=== PATIENT | male | born 1970 | race Caucasian/White ===

== ENCOUNTER 2022-05-26 10:02 | Outpatient (CLI) | payer OTHER, SELFPAY ==
--- NOTE | 2022-05-26 09:45 | DI.RAD_ITS ---
Exam(s) XR KNEE RT 4V AP,LAT,AGGIE,PAT EXAM: XR KNEE RT 4V AP,LAT,AGGIE,PAT CLINICAL HISTORY: right knee pain. TECHNIQUE: 2D digital imaging was performed. COMPARISON: No exams were available for comparison FINDINGS: Five views: There is no evidence of fracture but there does appear to be a small joint effusion which may signify an internal derangement. There are no degenerative changes in the 3 compartments of the right knee. A small round calcifications noted off the outer aspect of the lateral femoral condyle. This is in the region of the fibular collateral ligament but does not have the appearance of an avulsed fragmen t. There is no joint space narrowing nor osteochondral defects evident in the patellofemoral compart ment. IMPRESSION: No significant osseous findings in the right knee. However, there does appear to be a joint effusion which may signify an internal derangement. DATA REPOSITORY: RADIATION DOSE DELIVERED:
== END 2022-05-26 10:03 | disposition home or self-care (01) ==
LOC: DIORS 10:03
PROVIDERS: PCP Family Medicine; Referring Provider Family Medicine; Visit Provider Student in an Organized Health Care Education/Training Program
DX: M25.561 Pain in right knee (principal); M25.461 Effusion, right knee
CPT/HCPCS: 73564

== ENCOUNTER 2022-10-17 08:03 | Day surgery (SDC) | payer OTHER, SELFPAY ==
[2022-10-17 08:46] VITALS: BP 154/73; PULSE 80; RESP 16; TEMP 36.6; O2SAT 100
[2022-10-17] MEDS: Lactated Ringers 1,000 ML 80 ML IV (09:00)
--- NOTE | 2022-10-17 09:32 | ANES.PREOP_ITS ---
General Info Date of Service Date Performed: 10/17/22 Height: 5 ft 8 in Weight: 82.1 kg Body Mass Index (BMI): 27.5 Surgical Procedure: Operation Date: 10/17/22 09:05 Proposed Procedure Side Surgeon rosangela Ray, Meds Allergies and Home Medications Allergies Allergy/AdvReac Type Severity Reaction Status Date / Time peanut Allergy Severe Anaphylaxis Unverified 10/17/22 08:41 Home Medication Medication Instructions Recorded albuterol sulfate 90 mcg/actuation 2 puff inhalation Q6H PRN 09/25/22 aerosol inhaler (Ventolin HFA) betamethasone dipropionate 0.05 % 1 applic topical DAILY PRN 09/25/22 topical cream epinephrine 0.3 mg/0.3 mL 0.3 mg IM Q4H PRN 09/25/22 injection, auto-injector fluoride (sodium) 1.1 % dental 1 applic dental DAILY 09/25/22 paste fluticasone propionate 50 1 spray intranasal DAILY 09/25/22 mcg/actuation nasal spray,suspension (Flonase Allergy Relief) hydrochlorothiazide 25 mg tablet 25 mg PO QAM 09/25/22 levocetirizine 5 mg tablet 5 mg PO DAILY 09/25/22 lisinopril 40 mg tablet 40 mg PO DAILY 09/25/22 mupirocin 2 % topical ointment 1 applic topical BID 09/25/22 rosuvastatin 5 mg tablet 5 mg PO DAILY 09/25/22 bisacodyl 5 mg tablet,delayed 5 mg PO ONCE Colonoscopy Bowel 10/13/22 release (Dulcolax (bisacodyl)) Prep #4 tabs polyethylene glycol 3350 17 238 g PO ONCE Colonoscopy Bowel 10/13/22 gram/dose oral powder Prep #238 grams Current Visit Medications: Current Medications Generic Name Dose Route Start Last Admin Trade Name Freq PRN Reason Stop Dose Admin Hyoscyamine Sulfate 0.125 mg 10/17/22 02:45 Hyoscyamine 0.125 Mg Sl/Oral/Chew SL DIRECTED PRN Ringer's Solution 1,000 mls @ 80 mls/hr 10/17/22 06:00 10/17/22 09:00 IV 11/15/22 23:59 80 mls/hr INFUSION STEPHANIE Administration IV Miscellaneous Supplies 1 each 10/17/22 06:00 Iv Access IV 11/15/22 23:59 DIRECTED STEPHANIE Ondansetron HCl 4 mg 10/17/22 02:45 Ondansetron 4 Mg/2 Ml Vial IVP Q4H PRN PRN Nausea / Vomiting Sodium Chloride 0 ml 10/17/22 06:00 Normal Saline Flush 10 Ml Syr IV 11/15/22 23:59 PRN PRN Sodium Chloride 0 ml 10/17/22 06:00 Normal Saline 10 Ml Vial IJ 11/15/22 23:59 DIRECTED PRN Sterile Water 0 ml 10/17/22 06:00 Water,Injection,Sterile 10 Ml Vial IJ 11/15/22 23:59 DIRECTED PRN PFSH Active Problems Active Problems: Problem Status Onset Code Internal derangement of right knee M23.91 Plica syndrome, 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 states unknown Surgical History Surgical History (Updated 10/17/22 @ 08:40 by Natalie Love) Hx of hernia repair Tobacco Smoking/Tobacco Use Status: Never Alcohol Alcohol Intake: current Alcohol intake frequency: a few times a week Alcohol type: wine Substance Use Substance use: Never Substance use type: does not use Details: alcohol: t-2, couple glasses of wine Vital Signs and Lab Results Vital Signs Most Recent Vital Signs in EMR: Most Recent Vital Signs Temp Pulse Resp BP Pulse Ox 36.6 C 80 16 154/73 H 100 10/17/22 08:46 10/17/22 08:46 10/17/22 08:46 10/17/22 08:46 10/17/22 08:46 Lab Results Blood Type / Crossmatch: 2 No Data to Display Complete Blood Count: No Data to Display Complete Metabolic Panel: No Data to Display Liver Function Panel: No Data to Display Coagulation Panel: No Data to Display Cardiac Panel: No Data to Display Arterial Blood Gas: No Data to Display Venous Blood Gas: No Data to Display Pancreas Panel: No Data to Display Thyroid Panel: No Data to Display Infectious Disease: No Data to Display Blood Cultures: No Data to Display Toxicology Panel: No Data to Display Anesthesia Assessment and Plan Anesthesia History Personal History: No History of Anesthesia Complications Family History: No Family History of Anesthesia Complications Exercise Tolerance Exercise Tolerance: Metabolic Equivalents>4 Pertinent Negatives Pertinent Negatives: No Symptoms of GERD Cardiac & Pulmonary Exam Cardiac Exam: Normal S1/S2 Heart Sounds Pulmonary Exam: Clear Bilateral Breath Sounds Implantable Cardiac Device Does patient have a Pacemaker or an ICD?: No Airway Exam Known Difficult Airway: No Mallampati Class: 3 Mouth Opening: Normal (> 3cm) Thyromental Distance: Greater than 3 cm Facial Hair: Full Calixto Neck Range of Motion: Full ROM Neck Circumference: Normal Teeth Condition: Normal Dentition ASA Classification ASA Score: ASA 2 Emergency Case?: No NPO Status NPO Status: NPO Clears >2 hours, Solids >8 hours Anesthesia Plan Resuscitation Status: Full Code Anesthesia Technique: General Anesthesia Airway Planned: Natural Airway Monitors Used: Standard Monitors
[2022-10-17 10:01] VITALS: BMI 27.5
--- NOTE | 2022-10-17 10:27 | BOWEL_PTH ---
PATIENT: Silverio Jean LOC: [facility] U#:[id number] AGE/SX: 52/M ROOM: RE10/17/[address]: Siomara Ray : 1970 BED: DIS: 10/17/2022 SPEC #: [id number] RECD: 10/17/22 12:39 STATUS: EDWARD REQ #: [id number] RANDI: 10/17/22 10:[address]: Siomara Ray DEPT: Surgical Specimen RECD BY: Chari Philippe ENTERED: 10/17/22 12:40 SP TYPE: Bowel OTHR DR: Silverio De Leon Tissues: 1 - BIOPSY BOWEL 2 - BIOPSY BOWEL 3 - BIOPSY BOWEL Procedures: GROSS AND MICRO LEVEL 4 Comments: [id number]
[2022-10-17 11:00] VITALS: BP 118/70; PULSE 66; RESP 16; TEMP 36.5; O2SAT 97
--- NOTE | 2022-10-17 11:03 | W.COLOREPORT ---
Date of service: 10/17/22 Time of Service: 11:03 Colonoscopy Report Date of procedure: 10/17/22 Pre-op diagnosis general: Colorectal cancer screening Post-op diagnosis procedure note: other (Multiple polyps) Surgeon: Siomara Ray Anesthesia Type: General:No Airway Estimated blood loss (mL): 1 Pathology: other Disposition: same day Prep: Miralax/Dulcolax Procedure Description: After informed consent was obtained the patient was taken to the procedure room and placed in a left decubitous position. Monitors were applied and a time out was done. The patients name, date of , procedure, allergies to medications and metal in their body was reviewed. The patient was then sedated. Once sedated and comfortable a rectal exam was done. External exam was normal. Internal exam revealed a normal sphincter tone and no palpable masses. The scope was then introduced and retrofelexed. No internal hemorrhoids were identified. The scope was then advanced to the cecum w/out difficulty. The TI and appendiceal orifice were identified. The prep was BBPS 3 in all segments for a total of 9. The scope was then slowly retracted over 22 minutes back into the rectum. There are no diverticula visualized today. The mucosa is pink and healthy. He had multiple polyps that we removed today. All polyps are removed with a cold biting forcep. All specimen is retrieved and no bleeding is noted. They are all flat 5 mm polyps. They are removed from: x1 at 20 cm. X1 at 70 cm. And x1 in the rectum. All specimens are retrieved and no bleeding is noted the scope was removed and the patient was woken up and taken back to Same day surgery in stable condition. The patient tolerated the procedure well and there were no immediate complications. Follow up: The patient should follow up in 5 years, path pd, unless they develop changes in bowel habits or other new gastrointestinal complaints.
--- NOTE | 2022-10-17 11:07 | PDOC.DSDIS_ITS ---
Date of service: 10/17/22 Time of Service: 11:07 Discharge Plan Disposition Patient Disposition: Home Condition: Good Discharge Details Reason For Visit: Colon scope Attending Provider: Siomara Ray Primary Care Provider: Silverio De Leon Home Meds and New Rx's Prescriptions: Continued lisinopril 40 mg tablet 40 mg PO DAILY mupirocin 2 % ointment 1 applic topical BID rosuvastatin 5 mg tablet 5 mg PO DAILY betamethasone dipropionate 0.05 % cream 1 applic topical DAILY PRN fluoride (sodium) 1.1 % paste 1 applic dental DAILY levocetirizine 5 mg tablet 5 mg PO DAILY fluticasone propionate [Flonase Allergy Relief] 50 mcg/actuation spray,suspension 1 spray intranasal DAILY Rx Instructions: administer into each nostril epinephrine 0.3 mg/0.3 mL auto-injector 0.3 mg IM Q4H PRN albuterol sulfate [Ventolin HFA] 90 mcg/actuation HFA aerosol inhaler 2 puff inhalation Q6H PRN hydrochlorothiazide 25 mg tablet 25 mg PO QAM Discontinued bisacodyl [Dulcolax (bisacodyl)] 5 mg tablet,delayed release (DR/EC) 5 mg PO ONCE Qty: 4 0RF Rx Instructions: Colonoscopy Bowel Prep- Per Instructions polyethylene glycol 3350 17 gram/dose powder 238 g PO ONCE Qty: 238 0RF Rx Instructions: Colonoscopy Bowel Prep- Per Instructions Discharge Instructions Additional Instructions: DSU Colonoscopy Post- Op Instructions Instructions for Everyone who is given Anesthesia: For your safety, please do the following for the next twenty-four (24) hours: *Do Not operate a motor vehicle (car, truck, motorcycle, etc.) *Do Not drink alcoholic beverages or use any recreational drugs for the first 24 hours or while taking pain medications. The medications in your body may have a reaction that can be dangerous. *Do Not make any important decisions or sign any important papers. Findings: Multiple small polyps Follow up: My office will send a letter in 2 to 3 weeks time, as to what types of polyps they were and when we want you to repeat the colonoscopy. Most likely you will need to repeat a colonoscopy in 5 years time. 1. No lifting over 20 pounds or strenuous activity for the first 24 hours after your procedure. After 24 hours there are no restrictions on your activity but you may feel fatigued for a few days. 2. After you arrive home you may have a light meal and return to your normal diet as you can tolerate it without feeling sick to your stomach. 3. You may have a bloated, gaseous feeling in your belly (abdomen) after a colonoscopy. Passing gas and belching will help. Walking or lying down on your left side with your knees flexed may relieve the discomfort. Call the office at [phone] (Office) or [phone] (Hospital) right away if you notice any of the following: a.Vomiting of blood or ?coffee ground stools?. b.Rectal bleeding 1Tbsp, blood clots or continuous bleeding. c.Severe belly (abdominal) pain. d.A hard distended belly (abdomen) and an inability to pass gas. 4. Please don?t expect to have a normal BM (bowel movement) for 2-3 days after your procedure. 5. If there are questions regarding the findings of your procedure, please contact your doctor 6. If you are unable to contact your doctor with a problem, contact the hospital at [phone]. 7. Continue all your regular medications unless directed otherwise. I understand the above instructions and have no questions. Signature of Patient or Adult Escort Name of Responsible Adult Escort Signature of Nurse Date/Time Activity:: See above Diet:: This see above Discharge Orders Discharge Orders: Discharge Order (Routine); Ordered 10/17/22 Ordered By: Siomara Ray DS: Diagnosis Discharge Diagnosis (1) Adenomatous polyps: Status: Acute
--- NOTE | 2022-10-17 11:23 | W.ANESPOSTOP ---
Postoperative Evaluation Date, Time and Location Date Performed: 10/17/22 Time Performed: Patient Location: Day Surgery Unit Vital Signs Most Recent Imported Vital Signs: Most Recent Vital Signs Temp Pulse Resp BP Pulse Ox 36.5 C 66 16 118/70 97 10/17/22 11:00 10/17/22 11:00 10/17/22 11:00 10/17/22 11:00 10/17/22 11:00 Pain Score Most Recent Pain Score: Most Recent Pain Score Pain Level 0 10/17/22 11:00 Assessment Mental Status: Awake (Alert & Oriented to Patient Baseline) Airway and Respiratory Function: Patent airway with normal (patient baseline) respiratory exam Cardiovascular Function: Hemodynamically Stable Hydration Status: Adequately Hydrated Nausea & Vomiting: No Nausea or Vomiting Pain: Pt. Denies Any Pain Peripheral Nerve Block: Patient did not receive a nerve block
[2022-10-17 11:25] VITALS: BP 126/70; PULSE 64; RESP 18; TEMP 36.5; O2SAT 98
== END 2022-10-17 11:40 | disposition home or self-care (01) ==
PROVIDERS: PCP Family Medicine; Visit Provider Surgery
PROC: 0DJD8ZZ Inspection of Lower Intestinal Tract, Via Natural or Artificial Opening Endoscopic (ICD-10-PCS; CPT 45378; principal; 2022-10-17 09:00)
DX: Z12.11 Encounter for screening for malignant neoplasm of colon (principal); K63.5 Polyp of colon; K62.1 Rectal polyp
CPT/HCPCS: 45380; 88305

== ENCOUNTER 2025-02-12 15:06 | Outpatient (REF) | payer BC, SELFPAY ==
[2025-02-12 14:07] LABS: Abs Immature Grans 0.06 10^3/uL (0.0-0.06); HCT 41.7 % (40.0-50.0); HGB 13.8 g/dL (13.5-17.5); Immature Grans % 0.6 %; MCH 28.5 pg (27.0-33.0); MCHC 33.1 % (32.0-36.0); MCV 86 fL (80-95); MPV 9.2 fL (8.0-11.0); Platelet Count 280 10^3/uL (130-400); RBC 4.84 10^6/uL (4.36-5.78); RDW 13.6 % (11.8-14.1); RDW-SD 42.6 fL; WBC 10.18 10^3/uL (4.4-10.8)
== END 2025-02-12 15:07 | disposition home or self-care (01) ==
LOC: LBN 15:06
PROVIDERS: PCP Family Medicine; Visit Provider Internal Medicine Pulmonary Disease
DX: J45.40 Moderate persistent asthma, uncomplicated (principal)
CPT/HCPCS: 82785; 85025

== ENCOUNTER 2025-02-19 03:59 | Outpatient (CLI) | payer BC, SELFPAY ==
[2025-02-19] MEDS: Inhaler, Assist Device 1 EACH MC (16:40)
[2025-02-19] MEDS: Levalbuterol HFA 15 GM INH 4 PUFF IH (16:40)
--- NOTE | 2025-02-23 08:19 | W.PFT ---
Date of service: 02/19/25 Time of Service: 14:56 Pulmonary Function Test Result Indications: Asthma Impression 1. Good patient effort was noted. ATS standards for reproducibility were met. 2. Spirometry showed moderate obstructive lung disease with an FEV1 of 72% (2.31 L). FEV1 improved to 2.54 L post-bronchodilator 3. Following the administration of a bronchodilator there was not a significant response 4. TLC and RV were elevated, consistent with air trapping 5. DLCO was normal
== END 2025-02-19 04:00 | disposition home or self-care (01) ==
PROVIDERS: PCP Family Medicine; Visit Provider Internal Medicine Pulmonary Disease
DX: J45.40 Moderate persistent asthma, uncomplicated (principal)
CPT/HCPCS: 94060; 94726; 94729